=== PATIENT | female | born 1940 | race Caucasian/White ===

== ENCOUNTER → 2021-04-15 | Outpatient (REF) | payer MEDICARE ==
[~2021-04-15] MED LIST: ALEV220T26 PO; ATEN25TA PO; FISHCAP PO; LEVO50TA5 PO; ZYLO300T6 PO
== END ==
LOC: M LAB REF 16:10
PROVIDERS: ATTEND Surgery
DX: C44.622 Squamous cell carcinoma of skin of right upper limb, including shoulder (principal)